=== PATIENT | male | born 1945 | race Two or more races ===

== ENCOUNTER 2017-03-25 21:20 | Inpatient (IN) | payer MEDICAID ==
[~2017-03-25] VITALS: Ht 172.7 cm; Wt 76.7 kg
[~2017-03-25 21:20] MED LIST: DONE5TAB34 PO; MECL12.582 PO; MEMA10TA PO; QUET25TA PO; SERT50TA12 PO; TRAM50TA2 PO
--- NOTE | 2017-03-25 21:25 | NUR ---
PT BIBRA FROM HOME TO ER BED 09. PER REPORT, FAMILY NOTED PT TO BE HYPOTENSIVE GOING LOW 70/40. PT IS AAOX2. HX OF ALZEIMERS. DENIES PAIN OR ANY DISCOMFORT AT THIS TIME. 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 WAS GIVEN 500CC NS PRIOR TO ARRIVAL. VSS. AWAITING MD PINEDA.
[2017-03-25] MEDS ORDERED: IV NS 0.9% 1,000 ML BAG IV ONE (22:00)
--- NOTE | 2017-03-25 22:00 | NUR ---
CNC MACHINE OPERATOR AT BEDSIDE FOR BLOOD DRAW.
--- NOTE | 2017-03-25 22:03 | NUR ---
DR BUSH AT BEDSIDE FOR EVAL.
[2017-03-25 22:07] LABS: BASOPHILS % (AUTO) 0.1 % (0.0-2.0); EOSINOPHILS % (AUTO) 0.5 % (0.0-6.0); LYMPHOCYTES # (AUTO) 0.5 /CMM (0.8-4.8); LYMPHOCYTES % (AUTO) 9.4 % (20.0-44.0); MEAN CORPUSCULAR HEMOGLOBIN 29 PG (26.0-33.0); MEAN CORPUSCULAR HGB CONC 33 g/dl (31.0-36.0); MEAN CORPUSCULAR VOLUME 88 fL (80-96); MONOCYTES # (AUTO) 0.3 /CMM (0.1-1.30); MONOCYTES % (AUTO) 6.1 % (2.0-12.0); NEUTROPHILS # (AUTO) 4.1 /CMM (1.8-8.9); NEUTROPHILS % (AUTO) 83.9 % (43.0-81.0); PLATELET COUNT (AUTO) 55 /CMM (150-450); RDW COEFFICIENT OF VARIATION 16.9 (11.5-15.0); WHITE BLOOD COUNT (AUTO) 4.8 K/uL (4.3-11.0)
[2017-03-25 22:10] LABS: RED BLOOD CELL COUNT(AUTO) 1.57 MIL/uL (4.5-6.0)
--- NOTE | 2017-03-25 22:22 | NUR ---
RADIOLOGY AT BEDSIDE FOR CHEST XRAY.
[2017-03-25 22:24] LABS: ALANINE AMINOTRANSFERASE 7 U/L (12-78); ALKALINE PHOSPHATASE 41 U/L (46-116); ASPARTATE AMINOTRANSFERASE 16 U/L (15-37); BILIRUBIN,DIRECT 0.1 mg/dL (0.0-0.2); BILIRUBIN,TOTAL 0.2 mg/dL (0.2-1.0); CARBON DIOXIDE 14 mmol/L (21-32); CREATININE 0.3 mg/dL (0.6-1.3); SODIUM SERUM 151 mmol/L (136-145); UREA NITROGEN, BLOOD 17 mg/dL (7-18)
[2017-03-25 22:25] LABS: TROPONIN I 0.019 ng/mL (0.00-0.056)
[2017-03-25 22:26] LABS: HEMOGLOBIN 4.5 g/dL (13.5-17.5)
[2017-03-25 22:27] LABS: HEMATOCRIT 14 % (39-51)
[2017-03-25 22:36] LABS: ALBUMIN 0.8 g/dL (3.4-5.0); CHLORIDE 126 mmol/L (98-107); GLUCOSE 39 mg/dL (74-106); POTASSIUM 1.4 mmol/L (3.5-5.1)
[2017-03-25 22:39] LABS: CALCIUM, SERUM < 5.0 mg/dL (8.5-10.1)
[2017-03-25 22:46] LABS: INR 2.01 (0.87-1.13); PROTHROMBIN TIME 22.5 SECS (9.5-12.7)
--- NOTE | 2017-03-25 22:46 | NUR ---
CRYPTOGRAPHIC TECHNICIAN AT BEDSIDE FOR BLOOD REDRAW.
[2017-03-25 23:04] LABS: APPEARANCE,URINE SL CLOUDY (CLEAR); BILIRUBIN,URINE NEGATIVE (NEGATIVE); BLOOD, URINE 3+ Ery/uL (NEGATIVE); COLOR,URINE YELLOW (YELLOW); KETONES,URINE NEGATIVE (NEGATIVE); LEUKOCYTE ESTERASE ,URINE 3+ (NEGATIVE); NITRITE, URINE POSITIVE (NEGATIVE); PROTEIN,URINE NEGATIVE (NEGATIVE); UGLUCOSE NEGATIVE (NEGATIVE); UROBILINOGEN,URINE 0.2 EU/dL (0.2)
[2017-03-25 23:05] LABS: BASOPHILS % (AUTO) 0.1 % (0.0-2.0); EOSINOPHILS # (AUTO) 0.1 /CMM (0.0-0.7); EOSINOPHILS % (AUTO) 0.5 % (0.0-6.0); HEMATOCRIT 36 % (39-51); HEMOGLOBIN 11.9 g/dL (13.5-17.5); LYMPHOCYTES # (AUTO) 0.7 /CMM (0.8-4.8); LYMPHOCYTES % (AUTO) 5.9 % (20.0-44.0); MEAN CORPUSCULAR HEMOGLOBIN 29 PG (26.0-33.0); MEAN CORPUSCULAR HGB CONC 33 g/dl (31.0-36.0); MEAN CORPUSCULAR VOLUME 88 fL (80-96); MONOCYTES # (AUTO) 0.3 /CMM (0.1-1.30); MONOCYTES % (AUTO) 3.1 % (2.0-12.0); NEUTROPHILS # (AUTO) 10.2 /CMM (1.8-8.9); NEUTROPHILS % (AUTO) 90.4 % (43.0-81.0); PLATELET COUNT (AUTO) 123 /CMM (150-450); RDW COEFFICIENT OF VARIATION 16.6 (11.5-15.0); RED BLOOD CELL COUNT(AUTO) 4.11 MIL/uL (4.5-6.0); WHITE BLOOD COUNT (AUTO) 11.3 K/uL (4.3-11.0)
[2017-03-25 23:16] LABS: CALCIUM, SERUM 8.5 mg/dL (8.5-10.1); CREATININE 1.2 mg/dL (0.6-1.3); POTASSIUM 3.7 mmol/L (3.5-5.1)
--- NOTE | 2017-03-25 23:17 | NUR ---
REPORT TO CHARGE NURSE DARREN FOR TANNER.
[2017-03-25 23:21] LABS: ALBUMIN 2.8 g/dL (3.4-5.0); BILIRUBIN,TOTAL 0.4 mg/dL (0.2-1.0); TOTAL PROTEIN, SERUM 6.5 g/dL (6.4-8.2)
[2017-03-25 23:22] LABS: RBC,URINE 21-50 /HPF (0-2)
[2017-03-25 23:22] LABS: INR 1.16 (0.87-1.13); PROTHROMBIN TIME 12.5 SECS (9.5-12.7)
[2017-03-25 23:23] LABS: BACTERIA,URINE 4+ /HPF (None Seen); SQUAMOUS EPITHELIAL CELL,UR Rare /HPF (None Seen); WBC,URINE 51-80 /HPF (0-3)
--- NOTE | 2017-03-26 00:19 | NUR ---
307-2 M/S FOR DEHYDRATION, PYELONEPHRITIS
[2017-03-26] MEDS ORDERED: CEFTRIAXONE 1GM BAG (ER ONLY) 50 ML IV ONE (00:23)
[2017-03-26 00:28] LABS: BAND % (MANUAL) 19 % (0.0-5.0); LYMPHOCYTES % (MANUAL) 8 % (16-48); MONOCYTES % (MANUAL) 1 % (0-11.0); NEUTROPHILS % (MANUAL) 72 (42-76)
--- NOTE | 2017-03-26 00:29 | NUR ---
REPORT GIVEN TO NALDO MELTON.
[2017-03-26] MEDS ORDERED: CEFTRIAXONE 1GM BAG (ER ONLY) 1 GM/50 ML PIGGYBACK IV ONE (00:30)
[2017-03-26] MEDS ORDERED: IV NS 0.9% 1,000 ML BAG IV ONE (00:30)
--- NOTE | 2017-03-26 00:32 | NUR ---
RN NOTES RECEIVED REPORT FROM ER REGARDING NEW ADMISSION. AWAITING ARRIVAL IN UNIT.
[2017-03-26 00:40] VITALS: BP 108/70
--- NOTE | 2017-03-26 00:40 | NUR ---
RN NOTES RECEIVED PATIENT FROM ER VIA [facility] WITH DX OF DEHYDRATION, ACCOMPANIED BY AND TWO SONS, ALERT AND ORIENTED X1, SPEAKS ONLY PASHTO, WITH EPISODE OF CONFUSION, NO SOB, NO RESPIRATORY DISTRESS, ON AUSCULTATION, LUNG SOUNDS ARE CLEAR, ABDOMEN SOFT AND NON-TENDER, ACTIVE BOWEL SOUNDS, DENIES ANY PAIN AT THIS TIME, DRY LIPS. LEFT WRIST #22 SALINE LOCK AND RIGHT WRIST #20 ARE PATENT. INCONTINENT OF BOWEL AND BLADDER, USES DIAPER, SKIN ASSESSMENT PERFORMED, ORIENTED TO ROOM, USE OF CALL LIGHT, FAMILY PROVIDED MEDICAL HISTORY. NEEDS ATTENDED, CALL LIGHT WITHIN REACH.
[2017-03-26] MEDS ORDERED: FERR325T28 PO (00:49)
[2017-03-26] MEDS ORDERED: CARB-94 PO (00:49)
[2017-03-26] MEDS ORDERED: ENAL10TA PO (00:49)
[2017-03-26 00:50] VITALS: BP 108/70
[2017-03-26] MEDS ORDERED: HYDROCODONE/APAP 5/325MG 1 EACH TABLET PO PRN (01:00)
[2017-03-26] MEDS ORDERED: ACETAMINOPHEN 325 MG TABLET PO PRN (01:00)
[2017-03-26] MEDS ORDERED: IV PREMIX NS +20MEQ KCL 1 L IV ONE (01:21)
[2017-03-26] MEDS: Potassium Chloride 20 MEQ in IV NS 0.9% 1,000 ML IV SCH ×2 (01:36→12:36)
[2017-03-26 04:00] VITALS: BP 106/52
[2017-03-26 06:37] LABS: EOSINOPHILS # (AUTO) 0.1 /CMM (0.0-0.7); HEMATOCRIT 33 % (39-51); HEMOGLOBIN 11.2 g/dL (13.5-17.5); LYMPHOCYTES # (AUTO) 0.6 /CMM (0.8-4.8); MEAN CORPUSCULAR HEMOGLOBIN 30 PG (26.0-33.0); MEAN CORPUSCULAR HGB CONC 34 g/dl (31.0-36.0); MEAN CORPUSCULAR VOLUME 87 fL (80-96); MONOCYTES # (AUTO) 0.4 /CMM (0.1-1.30); NEUTROPHILS # (AUTO) 7.8 /CMM (1.8-8.9); PLATELET COUNT (AUTO) 110 /CMM (150-450); RDW COEFFICIENT OF VARIATION 16.8 (11.5-15.0); RED BLOOD CELL COUNT(AUTO) 3.77 MIL/uL (4.5-6.0); WHITE BLOOD COUNT (AUTO) 8.8 K/uL (4.3-11.0)
--- NOTE | 2017-03-26 06:40 | NUR ---
RN CLOSING NOTES PATIENT RESTING COMFORTABLY, NO SOB, RESPIRATION IS EVEN AND UNLABORED, NOT IN APPARENT PAIN, RIGHT WRIST PERIPHERAL LINE IS PATENT AND INFUSING WELL, BP DURING SHIFT IS WNL, CONTINUE IV HYDRATION. ALL NEEDS ATTENDED, CALL LIGHT WITHIN REACH.
[2017-03-26 06:57] LABS: POTASSIUM 3.9 mmol/L (3.5-5.1)
--- NOTE | 2017-03-26 07:30 | NUR ---
AM RN NOTE Received patient sleeping comfortably in his bed no acute distress noted. No SOB noted resp even and non-labored. On tele monitor, SR. IV site intact and patent. Bed in low locked position. Will continue to monitor.
[2017-03-26 08:00] VITALS: BP 100/62
[2017-03-26] MEDS ORDERED: MECLIZINE HCL 12.5 MG TABLET PO PRN (08:30)
[2017-03-26] MEDS ORDERED: DONEPEZIL 5 MG TABLET PO SCH (09:00)
[2017-03-26] MEDS ORDERED: SERTRALINE HCL 50 MG TABLET PO SCH (09:00)
[2017-03-26] MEDS ORDERED: FERROUS SULFATE (325 MG) 325 MG/TAB TABLET PO SCH (09:00)
[2017-03-26] MEDS ORDERED: LEVO500T15 PO (09:13)
[2017-03-26] MEDS ORDERED: MEMANTINE HCL 5 MG TABLET PO SCH (09:26)
[2017-03-26] MEDS ORDERED: IV NS 0.9% 500 ML IV ONE (09:30)
--- NOTE | 2017-03-26 09:30 | NUR ---
AM RN NOTE Pt seen and assessed by Dr. Lal with discharge home order. Son (Cheng) and at bedside, made aware about discharge order. Per Son, he wants ambulance to take pt home. CN (Alisa) made aware.
[2017-03-26] MEDS ORDERED: LEVOFLOXACIN 500 MG /D5W 100ML 500 MG in PREMIX 1 EA IV SCH (10:00)
--- NOTE | 2017-03-26 10:15 | NUR ---
AM RN NOTE Spoke with Arabella at Pharmacy that schedule meds are not showing in [facility]. Per Arabella, she will take a look.
[2017-03-26] MEDS: CARBIDOPA/LEVODOPA 25/250 MG 1 UDTAB PO SCH ×3 (10:52→16:41)
[2017-03-26 16:00] VITALS: BP 101/66
--- NOTE | 2017-03-26 18:18 | NUR ---
AM RN NOTE Patient awake, resting in his bed, no acute distress noted. Family at bedside. Discharge instructions on medications and teachings given to pt and family at bedside (Son Yohana and ) both verbalize understanding. 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 Belongings endorsed to family and signed. IV sites intact and patent. Will endorse to next shift.
--- NOTE | 2017-03-26 19:18 | NUR ---
AM RN NOTE Called Vidhi ([facility]) to confirm the slat pickler time by ambulance. Per Vidhi pt will be picked up today by ambulance but no confirmed slat pickler time yet. Family at bedside made aware.
--- NOTE | 2017-03-26 20:30 | NUR ---
COMMUNITY DEVELOPMENT OFFICER NOTE PT DISCHARGED TO HOME BY AMBULANCE. REMOVED ID BAND AND IV HEP LOCKS, DC SUMMARY PACKET GIVEN. FAMILY VERBALIZED UNDERSTANDING.
[2017-03-26] MEDS ORDERED: QUETIAPINE FUMARATE 25 MG TABLET PO SCH (22:00)
== END 2017-03-26 20:25 | disposition home or self-care (01) | DRG 720 ==
LOC: ER 21:22 → MED 03-26 00:21 → TELE 03-26 01:07
PROVIDERS: ADMIT Internal Medicine; ATTEND Internal Medicine
DX: A41.9 Sepsis, unspecified organism (principal); G93.40 Encephalopathy, unspecified; G20 Parkinson's disease; E86.0 Dehydration; N39.0 Urinary tract infection, site not specified; N12 Tubulo-interstitial nephritis, not specified as acute or chronic; G30.9 Alzheimer's disease, unspecified; F02.80 Dementia in other diseases classified elsewhere, unspecified severity, without behavioral disturbance, psychotic disturbance, mood disturbance, and anxiety; I10 Essential (primary) hypertension; Z79.899 Other long term (current) drug therapy; Z96.649 Presence of unspecified artificial hip joint; Z88.0 Allergy status to penicillin; M19.90 Unspecified osteoarthritis, unspecified site
CPT/HCPCS: 36415; 71010-TC; 80048-TC; 80053-TC; 80076-TC; 81000-TC; 84484-TC; 85025-TC; 85610-TC; 85730-TC; 86850-TC; 87081-TC; 87086-TC; 87186-TC; A4216; A4606; J0696; J1956; J3480; J3490; J7030; J7040; Z7610

== ENCOUNTER 2017-09-02 20:24 | Inpatient (IN) | payer MEDICAID ==
[~2017-09-02] VITALS: Ht 172.7 cm; Wt 73.1 kg
[~2017-09-02 20:24] MED LIST changes: +CARB-94 PO; +FERR325T28 PO; +LEVO500T75 PO; -TRAM50TA2 PO
--- NOTE | 2017-09-02 20:30 | NUR ---
BB SON. SOB x4 DAYS, NAD NOTED, VSS, RESP EVEN AND UNLABORED, PT PUT ON MONITOR AND HOSPITAL GOWN. AT BS.
[2017-09-02] MEDS ORDERED: ASPIRIN 325 MG TABLET ONE (20:49)
[2017-09-02] MEDS ORDERED: NITROGLYCERIN PACKET 1 GM PACKET ONE (20:49)
[2017-09-02] MEDS ORDERED: ASPIRIN 325 MG TABLET PO ONE (21:00)
[2017-09-02] MEDS ORDERED: NITROGLYCERIN PACKET 1 GM PACKET TD ONE (21:00)
[2017-09-02 21:04] LABS: BASOPHILS # (AUTO) 0.1 /CMM (0.0-0.2); BASOPHILS % (AUTO) 1.5 % (0.0-2.0); EOSINOPHILS # (AUTO) 0.1 /CMM (0.0-0.7); EOSINOPHILS % (AUTO) 1.1 % (0.0-6.0); HEMATOCRIT 44 % (39-51); HEMOGLOBIN 14.8 g/dL (13.5-17.5); LYMPHOCYTES # (AUTO) 0.9 /CMM (0.8-4.8); MEAN CORPUSCULAR HEMOGLOBIN 29 PG (26.0-33.0); MEAN CORPUSCULAR HGB CONC 33 g/dl (31.0-36.0); MEAN CORPUSCULAR VOLUME 88 fL (80-96); MONOCYTES # (AUTO) 0.3 /CMM (0.1-1.30); MONOCYTES % (AUTO) 6.2 % (2.0-12.0); NEUTROPHILS # (AUTO) 3.5 /CMM (1.8-8.9); NEUTROPHILS % (AUTO) 72.2 % (43.0-81.0); PLATELET COUNT (AUTO) 211 /CMM (150-450); RED BLOOD CELL COUNT(AUTO) 5.05 MIL/uL (4.5-6.0); WHITE BLOOD COUNT (AUTO) 4.9 K/uL (4.3-11.0)
[2017-09-02 21:12] LABS: CALCIUM, SERUM 9.3 mg/dL (8.5-10.1); CARBON DIOXIDE 27 mmol/L (21-32); CHLORIDE 104 mmol/L (98-107); CREATININE 0.8 mg/dL (0.6-1.3); GLUCOSE 112 mg/dL (74-106); POTASSIUM 3.9 mmol/L (3.5-5.1); SODIUM SERUM 138 mmol/L (136-145); UREA NITROGEN, BLOOD 11 mg/dL (7-18)
[2017-09-02 21:15] LABS: INR 1.09 (0.87-1.13); PROTHROMBIN TIME 11.3 SECS (9.5-12.7)
[2017-09-02 21:20] LABS: TROPONIN I < 0.017 ng/mL (0.00-0.056)
[2017-09-02] MEDS ORDERED: Z GUARD REMEDY 2 OZ OINT TP PRN (22:00)
[2017-09-02] MEDS ORDERED: ONDANSETRON HCL/PF 4 MG/2 ML VIAL IVP PRN (22:00)
[2017-09-02] MEDS ORDERED: HYDROCODONE/APAP 5/325MG 1 EACH TABLET PO PRN (22:00)
[2017-09-02] MEDS ORDERED: ZOLPIDEM TARTRATE 5 MG TABLET PO PRN (22:00)
[2017-09-02] MEDS ORDERED: MAG HYDROX/AL HYDROX/SIMETH 30 ML UDC PO PRN (22:00)
[2017-09-02] MEDS ORDERED: MECLIZINE HCL 12.5 MG TABLET PO PRN (22:00)
[2017-09-02] MEDS ORDERED: ENOXAPARIN SODIUM 40 MG/0.4 ML DISP.SYRIN SQ SCH (22:00)
[2017-09-02] MEDS ORDERED: MAGNESIUM HYDROXIDE 30 ML UDC PO PRN (22:00)
[2017-09-02] MEDS ORDERED: ACETAMINOPHEN 325 MG TABLET PO PRN (22:00)
[2017-09-03] VITALS (7 sets, daily range): BP systolic 107–164; BP diastolic 71–99
--- NOTE | 2017-09-03 | NUR ---
SCALE TECHNICIAN NOTE RECEIVED PATIENT AWAKE AND ALERT X1. DENIES CHEST PAIN AT THIS TIME. DENIES ANY PAIN OR DISCOMFORT. SON AND AT BEDSIDE. IV SITE INTACT, WITH NO REDNESS NOTED. SACRAL REDNESS NOTED. PICTURES TAKEN AND PLACED IN CHART. WOUND CONSULT ORDERED. PER SON, PATIENT IS BEDBOUND AND INCONTINENT. WILL REPOSITION EVERY TWO HOURS. ORIENTED PATIENT AND FAMILY TO ROOM AND TO UNIT. ALL BELONGINGS CHECKED AND ACCOUNTED FOR. BED LOCKED AND IN LOWEST POSITION. SIDE RAILS UP, CALL LIGHT WITHIN REACH.
[2017-09-03] MEDS ORDERED: ENOXAPARIN SODIUM 40 MG/0.4 ML DISP.SYRIN SQ ONE (00:53)
[2017-09-03] MEDS ORDERED: NITROGLYCERIN PACKET 1 GM PACKET ONE ×2 (00:53→04:32)
[2017-09-03] MEDS ORDERED: QUETIAPINE FUMARATE 25 MG TABLET ONE (00:54)
[2017-09-03] MEDS: QUETIAPINE FUMARATE 25 MG TABLET PO SCH ×3 (00:58→22:34)
[2017-09-03] MEDS: NITROGLYCERIN PACKET 1 GM PACKET TOP SCH ×4 (00:59→22:34)
--- NOTE | 2017-09-03 02:45 | NUR ---
RN NOTES PATIENT NOTED WITH EPISODES OF RESTLESSNESS, RE-ORIENTED AND REASSURED PT MULTIPLE TIMES BUT PATIENT CONTINUES TO BE RESTLESS. INFORMED DR. TOLLIVER AND RECEIVED NEW ORDER TO ADMINISTER LORAZEPAM 0.5 MG IV X 1 DOSE. ALL ORDERS NOTED AND CARRIED OUT. PATIENT WITH STABLE VITAL SIGNS. WILL CONTINUE TO MONITOR.
[2017-09-03] MEDS ORDERED: LORAZEPAM INJ 2 MG/ML VIAL IV ONE (03:00)
[2017-09-03] MEDS ORDERED: LORAZEPAM INJ 2 MG/ML VIAL ONE (03:08)
--- NOTE | 2017-09-03 07:20 | NUR ---
RN NOTES PATIENT IN BED, ALERT TO SELF, NOTED WITH NO FACIAL GRIMACING, CALM, BREATHING EVEN AND UNLABORED, NO SOB AND IN NO ACUTE DISTRESS. UNDER TELE WITH EPISODES OF SINUS DANIELA @ 59. ALL PATIENT'S NEEDS ATTENDED TO, BED PLACED IN LOW POSITION. LOCKED IN PLACE. WILL ENDORSE TO AM NURSE FOR CONTINUITY OF CARE.
--- NOTE | 2017-09-03 07:38 | NUR ---
RN OPEN NOTES RECEIVED REPORT FROM FLUID PUMP OPERATOR NURSE. PATIENT IS IN BED WITH HIS EYES CLOSED. NO SIGNS AND SYMPTOMS OF DISTRESS. BREATHING IS BILATERALLY EVEN AND UNLABORED. BED IN LOW POSITION, LOCKED AND TWO SIDE RAILS ARE UP. CALL LIGHT WITHIN REACH FOR SAFETY. WILL CONTINUE TO MONITOR AND ASSESS PATIENT THROUGH OUT MY SHIFT
--- NOTE | 2017-09-03 08:05 | NUR ---
ORTHOSTATIC BLOOD PRESSURE COMPETED IN A LAYING AND SITTING POSITION. PATIENT UNABLE TO STAND
[2017-09-03] MEDS ORDERED: ENOXAPARIN SODIUM 40 MG/0.4 ML DISP.SYRIN SQ SCH (08:31)
[2017-09-03] MEDS: FERROUS SULFATE (325 MG) 325 MG/TAB TABLET PO SCH (08:58)
[2017-09-03] MEDS: MEMANTINE HCL 5 MG TABLET PO SCH (08:58)
[2017-09-03] MEDS: DONEPEZIL 5 MG TABLET PO SCH (08:58)
[2017-09-03] MEDS: ASPIRIN 325 MG TABLET PO SCH (08:58)
[2017-09-03] MEDS: CARVEDILOL 3.125 MG TABLET PO SCH ×2 (08:58→21:32)
[2017-09-03] MEDS: SERTRALINE HCL 50 MG TABLET PO SCH (08:58)
[2017-09-03] MEDS: CARBIDOPA/LEVODOPA 25/250 MG 1 UDTAB PO SCH ×3 (08:59→16:42)
[2017-09-03 09:09] LABS: BASOPHILS % (AUTO) 0.5 % (0.0-2.0); EOSINOPHILS # (AUTO) 0.1 /CMM (0.0-0.7); EOSINOPHILS % (AUTO) 1.7 % (0.0-6.0); HEMATOCRIT 40 % (39-51); HEMOGLOBIN 13.8 g/dL (13.5-17.5); LYMPHOCYTES # (AUTO) 1.3 /CMM (0.8-4.8); LYMPHOCYTES % (AUTO) 31.3 % (20.0-44.0); MEAN CORPUSCULAR HEMOGLOBIN 31 PG (26.0-33.0); MEAN CORPUSCULAR HGB CONC 34 g/dl (31.0-36.0); MEAN CORPUSCULAR VOLUME 90 fL (80-96); MONOCYTES # (AUTO) 0.3 /CMM (0.1-1.30); MONOCYTES % (AUTO) 7.7 % (2.0-12.0); NEUTROPHILS # (AUTO) 2.5 /CMM (1.8-8.9); NEUTROPHILS % (AUTO) 58.8 % (43.0-81.0); PLATELET COUNT (AUTO) 187 /CMM (150-450); RDW COEFFICIENT OF VARIATION 14.8 (11.5-15.0); RED BLOOD CELL COUNT(AUTO) 4.48 MIL/uL (4.5-6.0); WHITE BLOOD COUNT (AUTO) 4.3 K/uL (4.3-11.0)
[2017-09-03 09:45] LABS: ALANINE AMINOTRANSFERASE 16 U/L (12-78); ALBUMIN 3.5 g/dL (3.4-5.0); ALKALINE PHOSPHATASE 108 U/L (46-116); ASPARTATE AMINOTRANSFERASE 20 U/L (15-37); BILIRUBIN,DIRECT 0.1 mg/dL (0.0-0.2); BILIRUBIN,TOTAL 0.5 mg/dL (0.2-1.0); CALCIUM, SERUM 9.2 mg/dL (8.5-10.1); CARBON DIOXIDE 27 mmol/L (21-32); CHLORIDE 107 mmol/L (98-107); CHOLESTEROL 195 mg/dL (<200); CREATININE 0.8 mg/dL (0.6-1.3); GLUCOSE 77 mg/dL (74-106); HDL CHOLESTEROL 56 mg/dL (40-60); LDL 128 mg/dL (0-99); PHOSPHORUS 3.6 mg/dL (2.5-4.9); POTASSIUM 3.6 mmol/L (3.5-5.1); SODIUM SERUM 143 mmol/L (136-145); TOTAL PROTEIN, SERUM 7.1 g/dL (6.4-8.2); TRIGLYCERIDES 107 mg/dL (30-150); UREA NITROGEN, BLOOD 9 mg/dL (7-18)
--- NOTE | 2017-09-03 18:33 | NUR ---
RN OPEN NOTES PATIENT IS IN BED, AWAKE. ALERT TO SELF ONLY. AT BEDSIDE. NO SIGNS AND SYMPTOMS OF DISTRESS. BREATHING IS BILATERALLY EVEN AND UNLABORED. BED IN LOW POSITION, LOCKED AND TWO SIDE RAILS ARE UP. CALL LIGHT WITHIN REACH FOR SAFETY. TOMORROW IN AM: ESOPHAGRAM AND EKG ORDERED. WILL ENDORSE TO BIOMETRICS CONSULTANT NURSE Addendum: 09/03/17 at 1837 by MARCIO DIEZ RN CORRECTION: THE ABOVE IS A CLOSING NOTES. NOT OPEN NOTES
--- NOTE | 2017-09-03 18:33 | NUR ---
RN CLOSED NOTES PATIENT IS IN BED, AWAKE. ALERT TO SELF ONLY. AT BEDSIDE. NO SIGNS AND SYMPTOMS OF DISTRESS. BREATHING IS BILATERALLY EVEN AND UNLABORED. BED IN LOW POSITION, LOCKED AND TWO SIDE RAILS ARE UP. CALL LIGHT WITHIN REACH FOR SAFETY. TOMORROW IN AM: ESOPHAGRAM AND EKG ORDERED. WILL ENDORSE TO CERTIFIED REGISTERED NURSE ANESTHETIST NURSE
--- NOTE | 2017-09-03 19:30 | NUR ---
TELE/RN OPENING NOTES PT AWAKE, HOB ELEVATED. A/OX1, PT'S FAMILY AT BEDSIDE. ON ROOM AIR, BREATHING EVEN AND UNLABORED. NO S/S OF SOB, IN NO APPARENT DISTRESS. DENIES PAIN AT THIS TIME. ON TELE MONITOR SHOWING SINUS RHYTHM WITH HEART RATE AT 75. IV TO LEFT WRIST PATENT AND INTACT. BED IN LOW/LOCKED POSITION WITH CALL LIGHT IN REACH. SIDE RAILS UPX2 AND BED ALARM ON FOR SAFETY. WILL CONTINUE TO MONITOR
[2017-09-04] VITALS: BP 145/81
[2017-09-04 04:00] VITALS: BP 151/88
[2017-09-04] MEDS: NITROGLYCERIN PACKET 1 GM PACKET TOP SCH ×2 (05:28→12:19)
--- NOTE | 2017-09-04 07:23 | NUR ---
MS/RN CLOSING NOTES PT RESTING COMFORTABLY IN BED. A/OX1. ON ROOM AIR, BREATHING EVEN AND UNLABORED. IN NO APPARENT DISTRESS. ON TELE MONITOR SHOWING SINUS RHYTHM WITH HR 67. PT REMOVED IV. MULTIPLE ATTEMPTS TO REINSERT. STILL NO IV ACCESS AT THIS TIME. REORIENTED PT PRN. NO SIGNIFICANT CHANGES OVERNIGHT. MADE PT COMFORTABLE POSSIBLE DURING SHIFT. BED IN LOW/LOCKED POSITION WITH CALL LIGHT IN REACH. SIDE RAILS UPX3 WITH BED ALARM ON FOR SAFETY. PT REMOVING GOWN AND INTERMITTENTLY ATTEMPTING TO GET OUT OF THE BED. WILL ENDORSE TO DAY SHIFT RN TANNER.
--- NOTE | 2017-09-04 07:50 | NUR ---
RN OPEN NOTES RECEIVED REPORT FROM HOISTMAN NURSE. PATIENT IS IN BED WITH HIS EYES OPEN. NO SIGNS AND SYMPTOMS OF DISTRESS. BREATHING IS BILATERALLY EVEN AND UNLABORED. BED IN LOW POSITION, LOCKED AND TWO SIDE RAILS ARE UP. CALL LIGHT WITHIN REACH FOR SAFETY. WILL CONTINUE TO MONITOR AND ASSESS PATIENT THROUGH OUT MY SHIFT
[2017-09-04 08:00] VITALS: BP 120/71
[2017-09-04] MEDS: SERTRALINE HCL 50 MG TABLET PO SCH (09:17)
[2017-09-04] MEDS: CARBIDOPA/LEVODOPA 25/250 MG 1 UDTAB PO SCH ×3 (09:17→17:28)
[2017-09-04] MEDS: MEMANTINE HCL 5 MG TABLET PO SCH (09:17)
[2017-09-04] MEDS: DONEPEZIL 5 MG TABLET PO SCH (09:17)
[2017-09-04] MEDS: ASPIRIN 325 MG TABLET PO SCH (09:17)
[2017-09-04] MEDS: FERROUS SULFATE (325 MG) 325 MG/TAB TABLET PO SCH (09:17)
[2017-09-04] MEDS: CARVEDILOL 3.125 MG TABLET PO SCH (09:18)
--- NOTE | 2017-09-04 10:53 | NUR ---
PATIENT LEFT THE FLOOR FOR RADIOLOGY
[2017-09-04] MEDS ORDERED: DIATR MEGLU/DIATRIZOATE SODIUM 120 ML BOTTLE (GASTROGRAPHIN) ONE ×2 (10:56→11:16)
[2017-09-04 16:00] VITALS: BP 101/59
--- NOTE | 2017-09-04 18:50 | NUR ---
TELEPHONE INTERCEPTOR OPERATOR NOTES DISCHARGE ORDER RECEIVED AND CARRIED OUT. PATIENT IS LEAVING IN A STABLE CONDITION. NO SIGNS AND SYMPTOMS OF DISTRESS. DENIED PAIN. PATIENT IS ALERT AND ORIENTED TO SELF ONLY, CONFUSE AND UNABLE TO VERBALIZE UNDERSTANDING. ALL DISCHARGE INSTRUCTIONS GAVE TO SON, DAVID. SON VERBALIZE UNDERSTANDING. ALL PERSONAL BELONGING WITH PATIENT AT TIME OF DISCHARGE. SON SIGNED BOTH DISCHARGE PAPER AND BELONGING LIST; FORMS PLACED IN THE CHART. PICTURE WAS TAKEN AND PLACED IN THE CHART. NO NEW CONCERNS IDENTIFIED UPON DISCHARGE. IV SITE REMOVED. ID BAND REMOVED. PATIENT TRANSFERRED HOME VIA A PRIVATE CAR AND HIS SON. FAMILY ESCORTED PATIENT TO THE MAIN LOBBY VIA PATIENT'S WHEELCHAIR FROM HOME.
== END 2017-09-04 18:47 | disposition home or self-care (01) | DRG 243 ==
LOC: ER 20:27 → TELE 23:07 → MED 09-04 09:21
PROVIDERS: ADMIT Internal Medicine; ATTEND Internal Medicine
DX: K22.8 Other specified diseases of esophagus (principal); G93.40 Encephalopathy, unspecified; G20 Parkinson's disease; R13.10 Dysphagia, unspecified; G30.9 Alzheimer's disease, unspecified; F02.80 Dementia in other diseases classified elsewhere, unspecified severity, without behavioral disturbance, psychotic disturbance, mood disturbance, and anxiety; R07.9 Chest pain, unspecified; I10 Essential (primary) hypertension; M19.90 Unspecified osteoarthritis, unspecified site; Z87.891 Personal history of nicotine dependence; F41.9 Anxiety disorder, unspecified; F32.9 Major depressive disorder, single episode, unspecified; Z96.642 Presence of left artificial hip joint
CPT/HCPCS: 36415; 71045-TC; 74230-TC; 80048-TC; 80061-TC; 80076-TC; 83735-TC; 84100-TC; 84484-TC; 85025-TC; 85730-TC; 87081-TC; 92611-TC; A4606; J1650; J2060; Q9963; Z7610